=== PATIENT | female | born 1975 | race Caucasian/White ===

== ENCOUNTER 2020-10-08 14:28 | Emergency (ER) | payer SELFPAY ==
[~2020-10-08] VITALS: Ht 165.1 cm; Wt 80.0 kg
[2020-10-08] MEDS ORDERED: GABA800T4 PO (14:38)
[2020-10-08] MEDS ORDERED: PRAZ2CAP PO (14:38)
[2020-10-08] MEDS ORDERED: ATIV1TAB10 PO (14:38)
[2020-10-08] MEDS ORDERED: HYDR1CAP25 PO (14:38)
[2020-10-08] MEDS ORDERED: CYMB1CAP5 PO (14:38)
[2020-10-08] MEDS ORDERED: AUGM875T28 PO (16:19)
[2020-10-08] MEDS ORDERED: LIDO2SOL9 PO (16:19)
[2020-10-08] MEDS ORDERED: AUGMENTIN 875 MG TAB PO ONE (16:30)
[2020-10-08] MEDS ORDERED: KETOROLAC 60MG 2ML VIAL IM ONE (16:30)
[2020-10-08 16:36] VITALS: BP 166/92
== END 2020-10-08 16:49 | disposition home or self-care (01) ==
LOC: M ED 14:28
DX: L03.211 Cellulitis of face (principal); K04.7 Periapical abscess without sinus; Z88.8 Allergy status to other drugs, medicaments and biological substances
CPT/HCPCS: 96372; 99283; J1885

== ENCOUNTER → 2020-10-23 | Outpatient (REF) | payer BC ==
[~2020-10-23] MED LIST: ATIV1TAB10 PO; AUGM875T28 PO; CYMB1CAP5 PO; GABA800T4 PO; HYDR1CAP25 PO; LIDO2SOL9 PO; PRAZ2CAP PO
== END ==
LOC: M LAB REF 16:25
PROVIDERS: ATTEND Physician Assistant
DX: R30.0 Dysuria (principal)